=== PATIENT | female | born 1970 | race Caucasian/White ===

== ENCOUNTER 2019-11-19 17:15 | Emergency (ER) | payer OTHER ==
[~2019-11-19] VITALS: Ht 149.9 cm; Wt 89.8 kg
[~2019-11-19 17:15] MED LIST: BACITRACIN 500U30 G1 TOP; BACTRIM DS TAB1 EACH PO; FLEXERIL PO; HYDROCODONE-AP1 EAC6 PO; IBUPROFEN 800800 M1 PO; LYRICA 75 MG CA75 MG PO; MOBIC7.5 MG PO; NORCO 5-325 TA1 EACH PO; OMEPRAZOLE20 M2 PO; ZANAFLEX4 MG PO
[2019-11-19 17:22] VITALS: BP 139/87
[2019-11-19] MEDS ORDERED: TRIAMCINOLONE A15 G1 TP (17:38)
[2019-11-19] MEDS ORDERED: PREDNISONE 20 M20 M1 PO (17:38)
[2019-11-19] MEDS ORDERED: KEFLEX500 M1 PO (17:38)
== END 2019-11-19 17:57 | disposition home or self-care (01) ==
LOC: M.ERS 17:15
DX: L24.7 Irritant contact dermatitis due to plants, except food (principal); M06.9 Rheumatoid arthritis, unspecified; F17.210 Nicotine dependence, cigarettes, uncomplicated; Z88.8 Allergy status to other drugs, medicaments and biological substances; Z90.710 Acquired absence of both cervix and uterus

== ENCOUNTER 2020-10-26 05:26 | Emergency (ER) | payer OTHER ==
[~2020-10-26] VITALS: Ht 149.9 cm; Wt 97.5 kg
[~2020-10-26 05:26] MED LIST changes: +KEFLEX500 M1 PO; +PREDNISONE 20 M20 M1 PO; +TRIAMCINOLONE A15 G1 TP
[2020-10-26] MEDS ORDERED: OXYCODONE HCL 55 MG PO (05:46)
[2020-10-26] MEDS ORDERED: PROPRANOLOL 20M20 M1 PO (05:46)
[2020-10-26 07:08] VITALS: BP 129/80
== END 2020-10-26 07:10 | disposition home or self-care (01) ==
LOC: M.ERS 05:26
DX: S80.01XA Contusion of right knee, initial encounter (principal); F17.210 Nicotine dependence, cigarettes, uncomplicated; Z90.711 Acquired absence of uterus with remaining cervical stump; Z79.899 Other long term (current) drug therapy; Z88.8 Allergy status to other drugs, medicaments and biological substances; W18.09XA Striking against other object with subsequent fall, initial encounter; Y93.89 Activity, other specified; Y92.89 Other specified places as the place of occurrence of the external cause; Y99.8 Other external cause status